=== PATIENT | female | born 1965 | race Caucasian/White ===

== ENCOUNTER 2017-02-27 16:36 | Emergency (ER) | payer OTHER ==
[~2017-02-27] VITALS: Ht 162.6 cm; Wt 72.6 kg
[~2017-02-27 16:36] MED LIST: MAGN355O3 PO; OMEP40CA PO; SUCR1TAB31 PO
--- NOTE | 2017-02-27 16:50 | NUR ---
DR HARO AT THE BEDSIDE FOR EVAL AND EXAM.
[2017-02-27] MEDS ORDERED: ESTR10TA VG (16:51)
[2017-02-27] MEDS ORDERED: ATOR40TA PO (16:51)
[2017-02-27 17:00] VITALS: BP 117/78
--- NOTE | 2017-02-27 17:01 | NUR ---
Patient discharged to home in stable conditon. Written and verbal after care instructions given. Patient verbalizes understanding of instructions.
== END 2017-02-27 17:01 | disposition home or self-care (01) ==
LOC: ER 16:37
DX: L74.3 Miliaria, unspecified (principal); E78.5 Hyperlipidemia, unspecified; K21.9 Gastro-esophageal reflux disease without esophagitis; Z88.1 Allergy status to other antibiotic agents
CPT/HCPCS: A4663

== ENCOUNTER 2018-04-15 09:15 | Emergency (ER) | payer OTHER ==
[~2018-04-15] VITALS: Ht 157.5 cm; Wt 71.7 kg
[~2018-04-15 09:15] MED LIST changes: +ATOR40TA PO; +ESTR10TA VG; -SUCR1TAB31 PO
[2018-04-15 09:39] LABS: *BILIRUBIN,URIN NEGATIVE (NEGATIVE); *BLOOD, URINE NEGATIVE (NEGATIVE); *CLARITY,URINE CLEAR (CLEAR); *KETONES,URINE NEGATIVE (NEGATIVE); *PROTEIN,URINE NEGATIVE (NEGATIVE); *URINE HCG, QUAL NEGATIVE (NEGATIVE); *UROBILINOGEN,URINE 0.2 E.U./dl (NORMAL); LEUKOCYTE ESTERASE ,URINE NEGATIVE (NEGATIVE); NITRITE, URINE NEGATIVE (NEGATIVE); UGLUCOSE NEGATIVE (NEGATIVE)
[2018-04-15 09:40] LABS: *COLOR,URINE LIGHT YELLOW (YELLOW)
[2018-04-15 09:46] LABS: BACTERIA,URINE NONE SEEN /HPF (NONE SEEN); RBC,URINE 0-3 /HPF (0-3); SQUAMOUS EPITHELIAL CELL,UR FEW /HPF (NONE SEEN); WBC,URINE 0-3 /HPF (0-3)
--- NOTE | 2018-04-15 10:19 | NUR ---
Copy of the urine tests results was given to patient. Patient discharged to home in stable conditon and steady gait. Written and verbal after care instructions given to patient. Patient verbalizes understanding of instructions.
== END 2018-04-15 10:20 | disposition home or self-care (01) ==
LOC: ER 09:15
DX: R35.0 Frequency of micturition (principal); R39.15 Urgency of urination; E78.5 Hyperlipidemia, unspecified; K21.9 Gastro-esophageal reflux disease without esophagitis; Z88.1 Allergy status to other antibiotic agents
CPT/HCPCS: 84703; 87086; A4663

== ENCOUNTER 2018-10-23 15:04 | Emergency (ER) | payer OTHER ==
[~2018-10-23] VITALS: Ht 157.5 cm; Wt 81.6 kg
[2018-10-23] MEDS ORDERED: ACETAMINOPHEN ES 500 MG TABLET PO ONE (15:45)
[2018-10-23] MEDS ORDERED: IBUPROFEN 600 MG TABLET PO ONE (15:45)
[2018-10-23] MEDS ORDERED: ACETAMINOPHEN ES 500 MG TABLET ONE (15:53)
[2018-10-23] MEDS ORDERED: IBUPROFEN 600 MG TABLET ONE (15:53)
[2018-10-23 15:57] LABS: BASOPHILS % (AUTO) 0.4 % (0.0-2.0); EOSINOPHILS # (AUTO) 0.1 K/uL (0.0-0.7); EOSINOPHILS % (AUTO) 1.5 % (0.0-7.0); HEMATOCRIT 39.3 % (31.2-41.9); HEMOGLOBIN 13.1 g/dL (10.9-14.3); LYMPHOCYTES # (AUTO) 1.1 K/uL (20.0-40.0); LYMPHOCYTES % (AUTO) 24.4 % (20.5-51.5); MEAN CORPUSCULAR HEMOGLOBIN 30.9 uug (24.7-32.8); MEAN CORPUSCULAR HGB CONC 33 g/dL (32.3-35.6); MEAN CORPUSCULAR VOLUME 92.7 fL (75.5-95.3); MONOCYTES # (AUTO) 0.4 K/uL (2.0-10.0); MONOCYTES % (AUTO) 8.3 % (0.0-11.0); NEUTROPHILS # (AUTO) 2.9 K/uL (1.8-8.9); NEUTROPHILS % (AUTO) 65.4 % (38.5-71.5); PLATELET COUNT (AUTO) 147 K/uL (179-408); RED BLOOD CELL COUNT(AUTO) 4.24 MIL/uL (3.63-4.92); WHITE BLOOD COUNT (AUTO) 4.4 K/uL (3.8-11.8)
[2018-10-23 16:10] LABS: BILIRUBIN,DIRECT 0.1 mg/dL (0.0-0.2); BILIRUBIN,TOTAL 0.3 mg/dL (0.2-1.0); CREATININE 0.7 mg/dL (0.6-1.3); POTASSIUM 4.5 mmol/L (3.5-5.1)
--- NOTE | 2018-10-23 19:04 | NUR ---
Urine sample collected, sent to lab. Lab at bedside for 2nd troponin blood draw.
[2018-10-23 19:09] LABS: *BILIRUBIN,URIN NEGATIVE (NEGATIVE); *BLOOD, URINE NEGATIVE (NEGATIVE); *CLARITY,URINE CLEAR (CLEAR); *COLOR,URINE YELLOW (YELLOW); *KETONES,URINE NEGATIVE (NEGATIVE); *UROBILINOGEN,URINE 0.2 E.U./dl (NORMAL); LEUKOCYTE ESTERASE ,URINE NEGATIVE (NEGATIVE); NITRITE, URINE NEGATIVE (NEGATIVE); UGLUCOSE NEGATIVE (NEGATIVE)
[2018-10-23 19:15] LABS: RBC,URINE 0-3 /HPF (0-3); WBC,URINE 0-3 /HPF (0-3)
[2018-10-23 19:16] LABS: BACTERIA,URINE NONE SEEN /HPF (NONE SEEN); SQUAMOUS EPITHELIAL CELL,UR FEW /HPF (NONE SEEN)
--- NOTE | 2018-10-23 20:22 | NUR ---
Patient discharged to home in stable conditon. Written and verbal after care instructions given. Patient verbalizes understanding of instructions. No IV in place. Pt states she feels much better. No other c/o. Pt states her will pick her up. All belongings w pt. VSS. NAD noted.
[2018-10-23 20:58] VITALS: BP 125/73
== END 2018-10-23 21:01 | disposition home or self-care (01) ==
LOC: ER 15:04
DX: M54.9 Dorsalgia, unspecified (principal); E78.5 Hyperlipidemia, unspecified; K21.9 Gastro-esophageal reflux disease without esophagitis; Z88.1 Allergy status to other antibiotic agents; Z79.899 Other long term (current) drug therapy
CPT/HCPCS: 36415; 70030-TC; 71045; 85025; 93005; A4663; A9150

== ENCOUNTER 2019-02-26 22:21 | Emergency (ER) | payer OTHER ==
[~2019-02-26] VITALS: Ht 157.5 cm; Wt 81.6 kg
--- NOTE | 2019-02-26 22:39 | NUR ---
at bedside for MSE
--- NOTE | 2019-02-26 22:46 | NUR ---
Patient discharged to home in stable conditon. Written and verbal after care instructions given. Patient verbalizes understanding of instructions. Pt. d/c per MD order, d/c papers signed, all belongings w/ pt., ID band removed, ambulated off unit w/ steady gait, NAD
== END 2019-02-26 22:51 | disposition home or self-care (01) ==
LOC: ER 22:21
DX: R20.2 Paresthesia of skin (principal); E78.5 Hyperlipidemia, unspecified; K21.9 Gastro-esophageal reflux disease without esophagitis; Z90.49 Acquired absence of other specified parts of digestive tract; Z79.899 Other long term (current) drug therapy; Z88.1 Allergy status to other antibiotic agents
CPT/HCPCS: A4663

== ENCOUNTER 2020-01-31 10:45 | Emergency (ER) | payer OTHER ==
[~2020-01-31] VITALS: Ht 157.5 cm; Wt 77.1 kg
[2020-01-31] MEDS ORDERED: CHOL10002 PO (11:23)
--- NOTE | 2020-01-31 11:30 | NUR ---
PATIENT WAS MSE BY DR MONTOYA IN ROOM 04B. PATIENT A & O X4.
[2020-01-31 12:00] LABS: BASOPHILS % (AUTO) 0.5 % (0.0-2.0); EOSINOPHILS # (AUTO) 0.1 K/uL (0.0-0.7); EOSINOPHILS % (AUTO) 2.1 % (0.0-7.0); HEMATOCRIT 41.2 % (31.2-41.9); HEMOGLOBIN 13.8 g/dL (10.9-14.3); LYMPHOCYTES # (AUTO) 1.7 K/uL (20.0-40.0); LYMPHOCYTES % (AUTO) 30.1 % (20.5-51.5); MEAN CORPUSCULAR HEMOGLOBIN 31.9 uug (24.7-32.8); MEAN CORPUSCULAR HGB CONC 33 g/dL (32.3-35.6); MEAN CORPUSCULAR VOLUME 95.6 fL (75.5-95.3); MONOCYTES # (AUTO) 0.4 K/uL (2.0-10.0); MONOCYTES % (AUTO) 6.9 % (0.0-11.0); NEUTROPHILS # (AUTO) 3.5 K/uL (1.8-8.9); NEUTROPHILS % (AUTO) 60.4 % (38.5-71.5); PLATELET COUNT (AUTO) 165 K/uL (179-408); RED BLOOD CELL COUNT(AUTO) 4.31 MIL/uL (3.63-4.92); WHITE BLOOD COUNT (AUTO) 5.7 K/uL (3.8-11.8)
[2020-01-31 12:01] LABS: CARBON DIOXIDE 28 mmol/L (21-32); CHLORIDE 103 mmol/L (98-107); CREATININE 0.7 mg/dL (0.6-1.3); GLUCOSE 151 mg/dL (74-106); POTASSIUM 3.9 mmol/L (3.5-5.1); UREA NITROGEN, BLOOD 8 mg/dL (7-18)
[2020-01-31 12:14] LABS: ALANINE AMINOTRANSFERASE 44 U/L (14-59); ALKALINE PHOSPHATASE 122 U/L (50-136); ASPARTATE AMINOTRANSFERASE 28 U/L (15-37); BILIRUBIN,DIRECT < 0.1 mg/dL (0.0-0.2); BILIRUBIN,TOTAL 0.3 mg/dL (0.2-1.0); TOTAL PROTEIN, SERUM 7.9 g/dL (6.4-8.2)
--- NOTE | 2020-01-31 15:00 | NUR ---
Patient is resting comfortably in bed with eyes closed
[2020-01-31 16:04] VITALS: BP 125/69
--- NOTE | 2020-01-31 16:04 | NUR ---
Patient discharged to home in stable condition. Written and verbal after care instructions given. Patient verbalizes understanding of instructions. Stressed follow up or return to ER for worsening s/s.
== END 2020-01-31 16:04 | disposition home or self-care (01) ==
LOC: ER 10:45
DX: R07.9 Chest pain, unspecified (principal); R05 Cough; Z20.828 Contact with and (suspected) exposure to other viral communicable diseases; R00.1 Bradycardia, unspecified; E78.5 Hyperlipidemia, unspecified; K21.9 Gastro-esophageal reflux disease without esophagitis; Z79.899 Other long term (current) drug therapy
CPT/HCPCS: 36415; 71045; 80048; 80076; 83880; 84484 ×2; 85025; 85379; 85730; 93005; 99285; U0003; 70030-TC; A4663

== ENCOUNTER 2025-01-02 14:00 | Inpatient (IN) | payer OTHER ==
[~2025-01-02] VITALS: Ht 160 cm; Wt 76.2 kg
[~2025-01-02 14:00] MED LIST changes: -ATOR40TA PO; +CHOL10002 PO
[2025-01-02] MEDS ORDERED: GLIM1TAB18 PO (14:34)
[2025-01-02] MEDS ORDERED: OMEG-220 PO (14:34)
[2025-01-02] MEDS ORDERED: PRAV10TA40 PO (14:34)
[2025-01-02] MEDS ORDERED: ESTR10TA9 VG (14:34)
[2025-01-02] MEDS ORDERED: OMEP20CA15 PO (14:34)
[2025-01-02] MEDS ORDERED: LISI2.5T14 PO (14:34)
[2025-01-02] MEDS ORDERED: ASPIRIN 81 MG TAB.CHEW ONE (14:42)
[2025-01-02] MEDS: ASPIRIN 81 MG TAB.CHEW PO ONE (14:43)
[2025-01-02 14:57] LABS: BASOPHILS % (AUTO) 0.3 % (0.0-2.0); EOSINOPHILS # (AUTO) 0.2 K/uL (0.0-0.7); EOSINOPHILS % (AUTO) 2.8 % (0.0-7.0); HEMATOCRIT 37.4 % (31.2-41.9); HEMOGLOBIN 12.6 g/dL (10.9-14.3); LYMPHOCYTES # (AUTO) 1.7 K/uL (0.8-4.8); LYMPHOCYTES % (AUTO) 24.7 % (20.5-51.5); MEAN CORPUSCULAR HEMOGLOBIN 32.2 uug (24.7-32.8); MEAN CORPUSCULAR HGB CONC 34 g/dL (32.3-35.6); MEAN CORPUSCULAR VOLUME 95.5 fL (75.5-95.3); MONOCYTES # (AUTO) 0.4 K/uL (0.1-1.30); MONOCYTES % (AUTO) 6.6 % (0.0-11.0); NEUTROPHILS # (AUTO) 4.4 K/uL (1.8-8.9); NEUTROPHILS % (AUTO) 65.6 % (38.5-71.5); PLATELET COUNT (AUTO) 179 K/uL (179-408); RED BLOOD CELL COUNT(AUTO) 3.92 MIL/uL (3.63-4.92); RED CELL DISTRIBUTION WIDTH 13.1 % (12.3-17.7); WHITE BLOOD COUNT (AUTO) 6.8 K/uL (3.8-11.8)
[2025-01-02] MEDS ORDERED: MAG HYDROX/AL HYDROX/SIMETH 30 ML LIQUID UDC ONE (15:03)
[2025-01-02 15:04] LABS: CALCIUM 9.2 mg/dL (8.5-10.1); CARBON DIOXIDE 22 mmol/L (21-32); CHLORIDE 104 mmol/L (98-107); CREATININE 0.5 mg/dL (0.6-1.3); GLUCOSE 127 mg/dL (74-106); POTASSIUM 3.9 mmol/L (3.5-5.1); SODIUM SERUM 140 mmol/L (136-145); UREA NITROGEN, BLOOD 13 mg/dL (7-18)
[2025-01-02 15:05] LABS: DIFFERENTIAL COMMENT 1
[2025-01-02] MEDS: MAG HYDROX/AL HYDROX/SIMETH 30 ML LIQUID UDC PO ONE (15:05)
[2025-01-02 15:17] LABS: ALANINE AMINOTRANSFERASE 38 U/L (14-59); ALBUMIN 3.9 g/dL (3.4-5.0); ALKALINE PHOSPHATASE 101 U/L (50-136); ASPARTATE AMINOTRANSFERASE 18 U/L (15-37); BILIRUBIN,DIRECT 0.2 mg/dL (0.0-0.2); BILIRUBIN,TOTAL 0.5 mg/dL (0.2-1.0); NT-PRO BNP 21 pg/mL (0-125); TOTAL PROTEIN, SERUM 7.7 g/dL (6.4-8.2)
[2025-01-02 18:38] VITALS: BP 125/40; TEMP 98.1; O2SAT 96
[2025-01-02] MEDS ORDERED: ACETAMINOPHEN 325 MG TABLET PO PRN (19:30)
[2025-01-02] MEDS ORDERED: REMEDY ESSENTIAL ZINC PASTE 113 GM TP PRN (19:30)
[2025-01-02] MEDS ORDERED: ONDANSETRON 4 MG/2 ML VIAL IV PRN (19:30)
[2025-01-02] MEDS: SUCRALFATE 1 G TABLET PO SCH (20:42)
[2025-01-02] MEDS: ATORVASTATIN 10 MG TABLET PO SCH (20:42)
[2025-01-02] MEDS: ENOXAPARIN SODIUM 40 MG/0.4 ML DISP.SYRIN SQ SCH (20:43)
[2025-01-02] MEDS: LISINOPRIL 5 MG TABLET PO SCH (22:13)
[2025-01-03 00:18] VITALS: BP 107/58; TEMP 98.2; O2SAT 99
[2025-01-03 04:30] VITALS: BP 109/50; TEMP 98.6; O2SAT 93
[2025-01-03] MEDS: PANTOPRAZOLE SODIUM 40 MG TABLET.DR PO SCH (06:19)
[2025-01-03 07:02] LABS: CALCIUM 8.9 mg/dL (8.5-10.1); CREATININE 0.5 mg/dL (0.6-1.3); MAGNESIUM 2.3 mg/dL (1.8-2.4); PHOSPHOROUS 4.3 mg/dL (2.5-4.9); POTASSIUM 3.7 mmol/L (3.5-5.1)
[2025-01-03 07:03] LABS: BASOPHILS % (AUTO) 0.3 % (0.0-2.0); EOSINOPHILS # (AUTO) 0.2 K/uL (0.0-0.7); EOSINOPHILS % (AUTO) 2.6 % (0.0-7.0); HEMATOCRIT 36.8 % (31.2-41.9); HEMOGLOBIN 12.5 g/dL (10.9-14.3); LYMPHOCYTES # (AUTO) 1.8 K/uL (0.8-4.8); LYMPHOCYTES % (AUTO) 29.8 % (20.5-51.5); MEAN CORPUSCULAR HEMOGLOBIN 32.5 uug (24.7-32.8); MEAN CORPUSCULAR HGB CONC 34 g/dL (32.3-35.6); MEAN CORPUSCULAR VOLUME 95.7 fL (75.5-95.3); MONOCYTES # (AUTO) 0.5 K/uL (0.1-1.30); MONOCYTES % (AUTO) 8.2 % (0.0-11.0); NEUTROPHILS # (AUTO) 3.5 K/uL (1.8-8.9); NEUTROPHILS % (AUTO) 59.1 % (38.5-71.5); PLATELET COUNT (AUTO) 162 K/uL (179-408); RED BLOOD CELL COUNT(AUTO) 3.84 MIL/uL (3.63-4.92); RED CELL DISTRIBUTION WIDTH 13.2 % (12.3-17.7); WHITE BLOOD COUNT (AUTO) 5.9 K/uL (3.8-11.8)
[2025-01-03 07:10] LABS: THYROID STIMULATING HORMONE 3.815 mIU/mL (0.358-3.740)
[2025-01-03 07:56] VITALS: BP 114/72; TEMP 98.2; O2SAT 96
[2025-01-03] MEDS ORDERED: LISINOPRIL 5 MG TABLET PO SCH (09:00)
[2025-01-03] MEDS: GLIMEPIRIDE 2 MG TABLET PO SCH (09:01)
[2025-01-03] MEDS: CHOLECALCIFEROL 1,000 UNIT TABLET PO SCH (09:01)
[2025-01-03] MEDS ORDERED: KETO120S5 TP (10:29)
[2025-01-03] MEDS ORDERED: MULT-1119 PO (10:32)
[2025-01-03] MEDS ORDERED: CALC600T35 PO (10:32)
[2025-01-03] MEDS ORDERED: MAGN500C16 PO (10:33)
[2025-01-03 11:10] VITALS: BP 100/57; TEMP 98.3; O2SAT 100
== END 2025-01-03 11:30 | disposition home or self-care (01) | DRG 207 ==
LOC: ER 14:00 → TELE3 18:04
PROVIDERS: ADMIT Nurse Practitioner Acute Care; ATTEND Nurse Practitioner Acute Care
DX: I31.9 Disease of pericardium, unspecified (principal); E11.9 Type 2 diabetes mellitus without complications; E78.5 Hyperlipidemia, unspecified; K21.00 Gastro-esophageal reflux disease with esophagitis, without bleeding; Z87.11 Personal history of peptic ulcer disease; K21.9 Gastro-esophageal reflux disease without esophagitis; Z88.1 Allergy status to other antibiotic agents; Z79.899 Other long term (current) drug therapy; Z79.84 Long term (current) use of oral hypoglycemic drugs; I10 Essential (primary) hypertension; J06.9 Acute upper respiratory infection, unspecified; E66.9 Obesity, unspecified; G89.29 Other chronic pain; M54.89 Other dorsalgia
CPT/HCPCS: 36415; 71045; 71250; 83735; 84100; 84443; 84484; 85025; 85651; 85730; 93307; A4606; A4663; G0378; J1650